=== PATIENT | female | born 1950 | race Caucasian/White ===

== ENCOUNTER 2016-10-20 08:14 | Day surgery (SDC) | payer MEDICARE, OTHER ==
[~2016-10-20] VITALS: Ht 160 cm; Wt 70.8 kg
--- NOTE | ~2016-10-20 | EGD ---
EGD REPORT [facility] [address] [place] [id number] NAME: CAROLYN HUA : [birth year] STATUS : REG [facility]#: [id number] AGE: 66 ADM/REG DATE : 10/20/16 MR#: [id number] REPORT SERV DATE: 10/20/16 DICTATED BY: DATE: REPORT STATUS : Draft TRANSCRIBED BY: [employer] DATE: 10/20/16 [facility] Patient Name: Carolyn Hua Date of : 1950 Attending MD: AMNA LENNON MD Procedure Date No Time: 10/20/2016 Procedure: Colonoscopy Indications: High risk colon CA surveillance: Personal history multiple (3 or more) adenomas Referring MD: BROOKE RAYMOND MD Medicines: Monitored Anesthesia Care Complications: No immediate complications. Procedure: Pre-Anesthesia Assessment: - ASA Grade Assessment: IV - A patient with severe systemic disease that is a constant threat to life. After I obtained informed consent, the scope was passed under direct vision. Throughout the procedure, the patient's blood pressure, pulse, and oxygen saturations were monitored continuously. The PCF [id number] was introduced through the anus and advanced to the cecum, identified by appendiceal orifice and ileocecal valve. The colonoscopy was performed without difficulty. The patient tolerated the procedure well. The quality of the bowel preparation was good. Findings: The perianal and digital rectal examinations were normal. Two sessile polyps were found in the distal transverse colon. The polyps were small in size. These polyps were removed with a cold biopsy forceps. Resection and retrieval were complete. No other significant abnormalities were identified in a careful examination of the remainder of the colon. There is no endoscopic evidence of diverticula, inflammation, mass, ulcerations or angioectasia in the entire colon. No additional abnormalities were found on retroflexion. Impression: - Two small polyps in the distal transverse colon. Resected and retrieved. Recommendation: - Patient has a contact number available for emergencies. The signs and symptoms of potential delayed complications were discussed with the patient. Return to normal activities tomorrow. Written discharge instructions were provided to the patient. - Regular diet. EGD REPORT [address] [address] NAME: CAROLYN HUA : [birth year] STATUS : REG [facility] PAT#: [id number] AGE: 66 ADM/REG DATE : 10/20/16 MR#: [id number] REPORT SERV DATE: 10/20/16 DICTATED BY: DATE: REPORT STATUS : Draft TRANSCRIBED BY: [employer] DATE: 10/20/16 - Discharge patient to home. - Continue present medications. - Resume Coumadin (warfarin) at prior dose today. Refer to managing physician for further adjustment of therapy. - Await pathology results. - Repeat colonoscopy in 5 years for surveillance based on pathology results. Procedure Code(s): --- Professional --- 43136, Colonoscopy, flexible, proximal to splenic flexure; with biopsy, single or multiple Diagnosis Code(s): --- Professional --- D12.3, Benign neoplasm of transverse colon Z86.010, Personal history of colonic polyps CPT copyright 2013 [employer]. All rights reserved. The codes documented in this report are preliminary and upon actuary review may be revised to meet current compliance requirements. AMNA LENNON MD 10/20/2016 10:43 AM This report has been signed electronically. Number of Addenda: 0 Note Initiated On: 10/20/2016 10:10 AM Scope Withdrawal Time 0 hours 14 minutes 39 seconds [address] [place] [address]
[~2016-10-20 08:14] MED LIST: AVAP150 PO; C5 PO; COREG12 PO; COUMADIN7.5 MG PO; DOX25 PO; IMITREX100 MG PO; LIOR10 PO; MSCONTIN PO; NEUR300 PO; NITROQUICK0.4 MG SL; OPANA ER10 MG PO; PRIN10 PO; PRINZIDE1 TAB PO; ROXICODONE15 MG PO; ROXICODONE30 MG PO; SOMATAB PO; SPIRO25 PO; SYMBICORT 160/41 INH INH; V5 PO; ZOFRAN4 PO; ZOFRAN8 PO
[2016-10-20 09:09] LABS: INTERNATIONAL NORMAL RATI 1.8 UNITS (-)
[2016-10-20 09:19] LABS: PROTIME (NOT ORD) 20.4 SEC (12.0-14.5)
== END 2016-10-20 23:59 | disposition home health service (06) ==
LOC: DMU 08:14
PROVIDERS: Anesthesiology; Internal Medicine Gastroenterology
PROC: 0DBL8ZX Excision of Transverse Colon, Via Natural or Artificial Opening Endoscopic, Diagnostic (ICD-10-PCS; principal; 2016-10-20 09:30)
DX: Z12.11 Encounter for screening for malignant neoplasm of colon (principal); D12.3 Benign neoplasm of transverse colon; R56.9 Unspecified convulsions; I10 Essential (primary) hypertension; I25.10 Atherosclerotic heart disease of native coronary artery without angina pectoris; I25.2 Old myocardial infarction; F41.9 Anxiety disorder, unspecified; J44.9 Chronic obstructive pulmonary disease, unspecified; M79.7 Fibromyalgia; F17.210 Nicotine dependence, cigarettes, uncomplicated; Z80.0 Family history of malignant neoplasm of digestive organs; Z86.010 Personal history of colon polyps; Z86.711 Personal history of pulmonary embolism; Z88.0 Allergy status to penicillin; Z88.5 Allergy status to narcotic agent; Z88.8 Allergy status to other drugs, medicaments and biological substances; Z79.01 Long term (current) use of anticoagulants; Z79.899 Other long term (current) drug therapy; Z90.710 Acquired absence of both cervix and uterus; Z98.890 Other specified postprocedural states
CPT/HCPCS: 85610; 88305